=== PATIENT | female | born 1940 | race Caucasian/White ===

== ENCOUNTER → 2016-07-05 | Outpatient (CLI) | payer MEDICARE ==
[~2016-07-05] MED LIST: ALEN70TA15 PO; ASPI-558 PO; BIOT25008 PO; MULT-543 PO; [UNRECOGNIZED DRUG - CODE] PO
== END ==
LOC: WC.BC 07:47
DX: Z12.31 Encounter for screening mammogram for malignant neoplasm of breast (principal); N64.59 Other signs and symptoms in breast
CPT/HCPCS: 77063; G0202